=== PATIENT | male | born 1985 | race Caucasian/White ===

== ENCOUNTER 2020-07-20 12:26 | Emergency (ER) | payer OTHER, SELFPAY ==
--- NOTE | ~2020-07-20 | XR_ITS ---
EXAMINATION: LEFT WRIST X-RAY CLINICAL INFORMATION: Pain COMPARISON: None TECHNIQUE: 4 views of the left wrist FINDINGS: There is a fracture of the mid scaphoid bone. This has sclerotic margins and may not be acute. There is a well-corticated soft tissue ossification seen on the lateral view suggestive of old dorsal wrist fracture as well. There are degenerative changes at the radiocarpal joint. There may be dorsal tilt of the lunate. There is diffuse soft tissue swelling of the wrist. XR/XR wrist LT w scaphoid IMPRESSION: Fracture of the scaphoid bone that is probably not acute. Evidence of old trauma to the dorsal wrist. Degenerative changes at the radiocarpal joint and question slight dorsal tilt of the lunate.
[2020-07-20 12:40] VITALS: BP 108/59; PULSE 56; RESP 16; TEMP 36.6; O2SAT 98; BMI 25.0
--- NOTE | 2020-07-20 14:35 | ED_ITS ---
HPI - General Adult General Chief complaint: General Medical Stated complaint: L WRIST INJ WORK RELATED Time Seen by Provider: 07/20/20 13:05 Source: patient Mode of arrival: ambulatory Limitations: no limitations History of Present Illness HPI narrative: Kyle ochoa dom - here with known L wrist injury from several years ago that he did not receive full care for had L wrist fracture but did not follow up with orthopedics just used ED splint - he notes a box of korean fries fell on his L forearm not wrist last week and needs a note to return to work MD complaint: left wrist injury Onset (ago): week(s) (1) Location: left and upper extremity Radiation: non-radiation Severity: mild Quality: dull Pain Consistency: intermittent Relieving factors: none Exacerbating factors: none Associated symptoms: denies other symptoms Treatments prior to arrival: none Related Data Allergies Allergy/AdvReac Type Severity Reaction Status Date / Time No Known Allergies Allergy Unverified 02/20/20 15:27 Review of Systems Review of Systems: Constitutional : No Fever, No Chills ENT/Mouth : No Ear Pain, No Hoarseness Eyes: No Eye Pain, No Swelling, No Redness Cardiovascular : No Chest Pain, No SOB Respiratory : No Cough, No Dyspnea Gastrointestinal : No Nausea, No Vomiting Genitourinary : No Dysuria, No Hematuria Musculoskeletal : positive joint pain, No Myalgias Skin : No Skin lacerations, No rash Neuro : No Weakness, No Numbness PMFSH Past Medical History Attestation statement: The following information was validated with the patient. Medical History No known health problems Social History Social History (Updated 07/20/20 @ 14:40 by Henna Almonte DO) Smoking Status: Current every day smoker Use of substances other than those prescribed or required for medical reasons: No Advance Directives: No Advance Directives Information Provided: No Physical Exam Vital Signs: Vital Signs: Last Vital Signs Temp 97.9 F 07/20/20 12:40 Pulse 56 07/20/20 12:40 Resp 16 07/20/20 12:40 BP 108/59 L 07/20/20 12:40 Pulse Ox 98 07/20/20 12:40 Body Mass Index 25.0 Appearance: Alert. Oriented X3. No acute distress. Eyes: Pupils equal, round and reactive to light. ENT: Pharynx normal. Neck: Normal inspection. Neck supple. CVS: Normal heart rate and rhythm. Pulses normal. Respiratory: No respiratory distress. Breath sounds normal. Abdomen: Soft and nontender. Skin: Skin warm and dry. Normal skin color. Normal skin turgor. Extremities: L wrist chronic deformity and limited range of motion, NV intact, no signs of infection, no ttp over anatomical snuff box Neuro: Oriented X 3. No motor deficit. No sensory deficit. Medical Decision Making MDM Narrative Medical decision making narrative: 34 yo male with remote L wrist injury that he never received full care for other than splint in the ED - has likely old scaphoid fracture given his history has no ttp over scaphoid bone and his recent injury where a box of fries fell on him was at this forearm Discharge Plan Discharge Clinical Impression: Contusion of left wrist Qualifiers: Encounter type: initial encounter Qualified Code(s): S60.212A - Contusion of left wrist, initial encounter Patient Disposition: Home, Self-Care Instructions: Scaphoid Fracture (ED), Wrist Sprain (ED) Additional Instructions: you have evidence of an old wrist fracture that did not heal, in the future you should follow up with a hand surgeon, YOU ARE CLEARED FOR WORK AT THIS TIME. Referrals: Melba Hadley MD [Physician] - 1 week Stand Alone Forms: Work/School Release
== END 2020-07-20 14:45 | disposition home or self-care (01) ==
PROVIDERS: Emergency Provider Emergency Medicine
DX: S60.212A Contusion of left wrist, initial encounter (principal); W20.8XXA Other cause of strike by thrown, projected or falling object, initial encounter; Y93.89 Activity, other specified; Y92.511 Restaurant or cafe as the place of occurrence of the external cause; Y99.0 Civilian activity done for income or pay
CPT/HCPCS: 73110; 99283

== ENCOUNTER → 2020-08-05 13:32 | Outpatient (BNVA) | payer OTHER, SELFPAY | PROVIDERS: Visit Provider Orthopaedic Surgery ==

== ENCOUNTER 2024-12-22 12:27 | Emergency (ER) | payer MEDICAID, SELFPAY ==
--- NOTE | ~2024-12-22 | CT_ITS ---
CLINICAL HISTORY: LLQ tenderness CT ABDOMEN AND PELVIS WITH CONTRAST Comparison: None provided Findings: Bilateral lower lobe atelectasis and/or infiltrates, left greater than right. No pleural effusion. There are no acute abnormalities in the solid organs. There is diffuse fatty infiltration of the liver. No urolithiasis. Small left renal cyst. No large calcified gallstone. No AAA. No bowel obstruction, pneumoperitoneum, or pneumatosis. There is mucosal and paracolic edema in the distal descending colon associated with regional diverticula. There is fluid distention of the upstream colon. There is mild fluid distention of multiple small bowel loops with no abrupt transition point or significant mesenteric edema. Small amount of free fluid in the pelvis. No organized fluid collection. The appendix is identified. No acute appendicitis. Urinary bladder wall thickening is most likely due to underdistention. There is no significant perivesical edema. Prostate unremarkable. Small fat containing bilateral inguinal hernias. No acute fracture. IMPRESSION: 1. Acute diverticulitis in the distal descending colon with no perforation or peridiverticular abscess. 2. Fluid distention of the upstream colon can be associated with diarrheal symptoms. 3. Mild reactive small bowel ileus. No obstruction. 4. Mild pelvic ascites. 5. Additional findings as above. This document has been electronically signed by: Elke Myers DO on 12/22/2024 16:06:26
[2024-12-22 13:10] VITALS: BP 98/57; PULSE 79; RESP 16; TEMP 36.7; O2SAT 97; BMI 35.7
--- NOTE | 2024-12-22 13:10 | ED.ABDPAIN ---
HPI - Abdominal Pain General Chief Complaint: Abdominal Pain Stated Complaint: abd pain started on left side now on right/ V/N Time Seen by Provider: 12/22/24 14:50 Source: patient, family (mother), RN notes reviewed and old records reviewed Mode of arrival: ambulatory Limitations: no limitations History of Present Illness ED Provider: Ganesh HPI narrative: Patient is a 39-year-old male presenting to the emergency department with complaint of left lower quadrant abdominal pain which began last night. States that his last bowel movement was yesterday morning, and it was normal but that he typically has 3-4 bowel movements per day. This morning had nausea and vomiting. Pain was severe at onset and caused him to double over. Since has subsided some, rates current pain at 5/10. Denies fever. At times pain has radiated to left groin and left flank. Denies difficulty urinating, dysuria, hematuria. No past history of kidney stones for patient or mother. Denies prior abdominal surgeries. MD elicited complaint: abdominal pain Related Data Previous Rx's ?Medication ?Instructions ?Recorded amoxicillin 875 mg-potassium 1 tab PO BID #14 tabs 12/22/24 clavulanate 125 mg tablet ondansetron 4 mg disintegrating 4 mg PO Q8H PRN nausea and 12/22/24 tablet vomiting #10 tabs Allergies Allergy/AdvReac Type Severity Reaction Status Date / Time No Known Allergies Allergy Verified 12/22/24 13:12 Review of Systems Review of Systems As per HPI Yes all other systems are reviewed and are negative Constitutional: Reports as per HPI [facility] Past Medical History Medical History No known health problems Social History Social History (Updated 08/05/20 @ 13:46 by Althea Razo CMA) Advance Directives: No Advance Directives Information Provided: No Current occupational status: employed Current occupation: Food Distribution selector Physical Exam ED Vital Signs: Vital Signs - 24 hr 12/22/24 13:10 12/22/24 15:11 Temperature 98.0 F 99.3 F Pulse Rate 79 74 Respiratory Rate 16 16 Blood Pressure 98/57 L 129/69 Pulse Oximetry 97 96 Oxygen Delivery Method Room Air Room Air BMI result Body Mass Index 35.7 Vital signs have been reviewed and appear to be correct. Blood pressure low. Heart rate normal. Respiratory rate normal. Temperature normal. Oxygen saturation normal. Const General: cooperative, healthy appearing and no acute distress Orientation/consciousness: oriented to person, oriented to place, oriented to time and patient oriented x3 Limitations: no limitations HENMT Head: Yes normocephalic and Yes atraumatic Ears: external ears normal General nose exam: Normal external nose present Face and sinus: Yes face symmetric Mouth: oropharynx normal and moist mucous membranes Throat: Yes uvula midline Eyes Pupils: Equal, round and reactive pupils present Neck Neck: Yes normal visual inspection and Yes supple Resp Effort & Inspection: normal respiratory effort and able to speak in complete sentences Auscultation: clear to auscultation bilaterally Cardio Rate: regular rate Rhythm: regular rhythm Heart sounds: S1 normal heart sound present and S2 normal heart sound present GI Palpation (GI): Soft to palpation, Tenderness to palpation present (GI) in the LLQ, no guarding, no hernias and No Rebound tenderness present Auscultation: normoactive bowel sounds General: Yes no CVA tenderness Back/Spine/Pelvis Back: no CVA tenderness Skin General skin exam: elasticity normal and turgor normal Neuro General: oriented to person, oriented to place, oriented to time, patient oriented x3, moves all extremities, no focal motor deficits and CN's II-XI intact bilaterally Cranial nerves: Yes Equal, round and reactive pupils present Cognition (Neuro): normal cognition Extrem General: Yes full ROM, Yes no pedal edema and Yes no calf tenderness Psych Mental Status: mental status grossly normal Affect: normal affect Thought process: Normal thought process present Course Course Course Narrative: Brigette Bajwa ELECTRONIC WARFARE OPERATOR 12/22 1311 This is a rapid medical exam. Deferred additional HPI, ROS, PE to primary provider. 39 yo male with no PMH/no abdominal surgical history here with complaints of left sided abdominal pain, constipation, nausea/vomiting. Last BM yesterday but small per patient. Took dulcolax/MOM 2 hrs prior. Will obtain labs, UA. VSS Medical Decision Making Medical Decision Making MDM Narrative: Patient is a 39-year-old male presenting to the emergency department with complaint of left lower quadrant abdominal pain which began last night. On exam patient is awake, A+Ox3, VS WNL, afebrile, normal neurological exam without focal deficits, physical exam findings as above. Given reported symptoms and physical exam findings, initial differential includes but is not limited to UTI, pyelonephritis, obstructing calculi, hydronephrosis, diverticulitis, obstruction. Labs notable for no leukocytosis, no significant electrolyte abnormalities. CT notable for acute diverticulitis without perforation or abscess. My interpretation is in agreement with the radiologist's interpretation. Will discharge patient home on augmentin with zofran for nausea. Return precautions discussed at bedside. Patient provided with referrals to primary care as he states he does not currently have a PCP. Patient verbalized understanding of and agreement with plan. Differential Diagnosis Differential Diagnoses: The differential diagnosis associated with the presentation includes as per [facility] Admission/Observation Consideration of admission/observation: Escalation of care including admission/observation considered Patient would have been admitted to the hospital had their clinical presentation warranted hospital admission. Lab Data [facility] Lab Attestation statement: I reviewed the patient's lab results. as per [facility] 12/22/24 13:23 12/22/24 13:23 Labs: Lab Results 12/22/24 Range/Units 13:23 WBC 10.4 (4.8-10.8) X10*3/uL RBC 5.01 (4.60-5.80) X10*6/uL Hgb 15.1 (14.0-18.0) g/dl Hct 43.8 (42.0-52.0) % MCV 87.4 (80.0-98.0) fL MCH 30.1 (27.0-33.0) pg MCHC 34.5 (31.0-36.0) g/dl RDW 12.6 (11.0-16.0) % Plt Count 232 (160-400) X10*3/uL MPV 10.0 (9.4-12.4) fL Immature Gran % (Auto) 0.3 (0.0-0.4) % Neut % (Auto) 85.1 H (45-73) % Lymph % (Auto) 8.3 L (20-40) % [place] % (Auto) 5.1 (2-11) % Eos % (Auto) 1.1 (0-4) % Baso % (Auto) 0.1 (0-2) % Lymph # (Auto) 0.9 L (1.2-4.9) X10*3/uL [place] # (Auto) 0.5 (0.1-1.2) X10*3/uL Eos # (Auto) 0.1 (0.0-0.4) X10*3/uL Baso # (Auto) 0.0 (0.0-0.2) X10*3/uL Abs Immat Gran (auto) 0.03 (0.00-0.03) X10*3/uL Absolute Neuts (auto) 8.9 H (2.0-8.3) x10*3/uL Absolute Nucleated RBC 0.000 (0.0-0.012) X10*3/uL Nucleated RBC % (auto) 0.0 (0.0-0.2) /100WBC Sodium 143 (135-145) mmol/L Potassium 4.1 (3.3-5.1) mmol/L Chloride 107 (96-108) mmol/L Carbon Dioxide 24 (22-29) mmol/L Anion Gap 16 (12-20) BUN 18 H (9-16) mg/dL Creatinine 1.08 (0.5-1.4) mg/dL Estim Creat Clear Calc 106.5 Estimated GFR > 60 Random Glucose 108 (60-115) mg/dL Calcium 9.5 (8.4-10.2) mg/dL Total Bilirubin 0.3 (0.0-1.0) mg/dL Direct Bilirubin 0.2 (0.0-0.5) mg/dL AST 29 (5-37) U/L ALT 49 H (0-40) U/L Alkaline Phosphatase 86 (39-117) U/L Total Protein 7.8 (6.5-8.0) g/dL Albumin 4.8 (3.5-5.0) g/dL Lipase 13 (8-78) U/L Independent Interpretation I performed an independent interpretation of an: CT Scan Interpretation: [facility] UTI abdomen pelvis notable for acute diverticulitis without evidence of perforation or abscess Radiology Impression Discussion of test interpretation with radiology: I have reviewed the radiologist's reading. Radiologist Impression: IMPRESSION: 1. Acute diverticulitis in the distal descending colon with no perforation or peridiverticular abscess. 2. Fluid distention of the upstream colon can be associated with diarrheal symptoms. 3. Mild reactive small bowel ileus. No obstruction. 4. Mild pelvic ascites. 5. Additional findings as above. External Record Review External record reviewed: Inpatient record, Office record and Outpatient record Prescription Management I considered prescription management with: Antibiotic and Other Medications Administered Discontinued Medications Generic Name Dose Route Start Last Admin Trade Name Freq PRN Reason Stop Dose Admin Sodium Chloride 1,000 mls @ 999 mls/hr 12/22/24 15:00 12/22/24 16:33 Ns IV 12/22/24 16:00 Infused .Q1H1M FELIPE Infusion Iohexol 100 ml 12/22/24 15:22 12/22/24 15:22 Iohexol 350 Mg/Ml 100 Ml Infus..Btl IV 12/22/24 15:23 85 ml ONCE ONE Administration Morphine Sulfate 4 mg 12/22/24 14:56 12/22/24 15:12 Morphine Sulfate 4 Mg/Ml Cartridge IVPUSH 12/22/24 14:57 4 mg ONCE ONE Administration Protocol Ondansetron HCl 4 mg 12/22/24 14:56 12/22/24 15:12 Ondansetron Hcl 4 Mg/2 Ml Vial IVPUSH 12/22/24 14:57 4 mg ONCE ONE Administration Discharge Plan Discharge Clinical Impression: Diverticulitis Patient Disposition: Home, Self-Care Instructions: Amoxicillin/Clavulanate Potassium (By mouth), Diverticulitis (DC), Diverticulitis Diet (ED) Additional Instructions: You were evaluated in the emergency department today for abdominal pain. Your CT scan showed evidence of diverticulitis which is an infection of your colon. You are being prescribed antibiotics, please complete the full course as prescribed even if your symptoms improve. You can use ibuprofen or naproxen as needed for discomfort, do not take these medications in combination. You are being prescribed ondansetron for nausea which you can take every 8 hours as needed. Return to the emergency department if you develop worsening pain, fever 100.4? F or greater, persistent vomiting or any other new or concerning symptoms. Prescriptions: New amoxicillin-pot clavulanate 875-125 mg tablet 1 tab PO BID Qty: 14 0RF ondansetron 4 mg tablet,disintegrating 4 mg PO Q8H PRN (Reason: nausea and vomiting) Qty: 10 0RF Referrals: [facility] [place] [facility] [Provider Group, Internal Medicine] [facility] [Provider Group, Internal Medicine] Print Language: Guatemalan
[2024-12-22 13:32] LABS: MANUAL DIFF FLAG NO
[2024-12-22 13:33] LABS: Hematocrit 43.8 % (42.0-52.0); Hemoglobin 15.1 g/dl (14.0-18.0); Imm Gran Abs Auto 0.03 X10*3/uL (0.00-0.03); Imm Gran Pct Auto 0.3 % (0.0-0.4); Lymphocytes Absolute Auto 0.9 X10*3/uL (1.2-4.9); Mean Corpuscular HGB Conc 34.5 g/dl (31.0-36.0); Mean Corpuscular Hemoglobin 30.1 pg (27.0-33.0); Mean Corpuscular Volume 87.4 fL (80.0-98.0); NRBC Abs Auto 0.000 X10*3/uL (0.0-0.012); NRBC Pct Auto 0.0 /100WBC (0.0-0.2); Platelet Count 232 X10*3/uL (160-400); Red Blood Count 5.01 X10*6/uL (4.60-5.80); White Blood Count 10.4 X10*3/uL (4.8-10.8)
[2024-12-22 13:53] LABS: Alanine Aminotransferase 49 U/L (0-40); Albumin Level 4.8 g/dL (3.5-5.0); Alkaline Phosphatase 86 U/L (39-117); Anion Gap 16 (12-20); Aspartate Amino Transferase 29 U/L (5-37); Blood Urea Nitrogen 18 mg/dL (9-16); Calcium 9.5 mg/dL (8.4-10.2); Carbon Dioxide 24 mmol/L (22-29); Chloride 107 mmol/L (96-108); Creatinine Clr Calc Pharmacy 106.5; Estimated Glomerular Filt Rate > 60; Lipase 13 U/L (8-78); Potassium 4.1 mmol/L (3.3-5.1); Sodium 143 mmol/L (135-145); Total Protein 7.8 g/dL (6.5-8.0)
[2024-12-22 15:11] VITALS: BP 129/69; PULSE 74; RESP 16; TEMP 37.4; O2SAT 96
[2024-12-22] MEDS: iohexoL 350 MG/ML 100 ML INFUS..BTL IV (15:22)
--- OUTSIDE RECORDS SUMMARY | 2024-12-22 15:50 | XMS_ITS | Clinical Summary ---
Author Organization [facility] Address [address] [place] [id number] Care Team Providers Care Senior Risk Analyst Name Role Phone Pcp, No Primary Care Provider Unavailabl e Allergies No known active allergies Medications No known medications Active Problems No known active problems Social History Tobacco Use Types Packs/Day Years Used Date Smoking Tobacco: Every Day Cigarettes Smokeless Tobacco: Never Tobacco Cessation:Ready to Q uit: Not Asked; Counseling Given: Not Answered Alcohol Use Standard Drinks/Week Comments Yes 0 (1 standard drink = 0.6 oz pur e alcohol) Sex and Gender Information Value Date Recorded Sex Assigned at Not on file Legal Sex Male 10:37 AM EDT Gender Identity Not on file Sexual Orientation Not on file Last Filed Vital Signs Vital Sign Reading Time Taken Comments Blood Pressure 120/81 09/08/2022 1:54 PM EDT Pulse 71 09/08/2022 1:54 PM EDT Temperature 36.2 C (97.2 F) 09/08/2022 1:54 PM EDT Respiratory Rate - - Oxygen Saturation 100% 09/08/2022 1:54 PM EDT Inhaled Oxygen Concentration - - Weight 99.8 kg (220 lb) 09/08/2022 1:54 PM EDT Height 188 cm (6' 2 ) 08/26/2022 10:52 AM EDT Body Mass Index 28.25 08/26/2022 10:52 AM EDT Plan of Treatment Health Maintenance Due Date Last Done Comments Hepatitis C Virus Screening 1983 HIV Screening 08/18/1996 DTaP/Tdap/Td Vaccines (1 - Tdap) 08/18/2002 Hepatitis B Vaccines (1 of 3 - 19+ 3-dose series) 08/18/2002 Pneumococcal Vaccine: Pediat neftali (0-5 Years) and At-Risk Patients (6 to 49 Years) (1 of 2 - PCV) 08/18/2002 COVID-19 Vaccine (2023-2 5 season) 2024 Influenza Vaccine 01/03/2025 HPV Vaccines Aged Out No longer eligi ble based on patient's age to complete this topic Insurance [employer] - PPO Care Teams Senior Risk Analyst Relationship Specialty Start Date End Date Pcp, No PCP - General General Medicine 08/16/22
[2024-12-22 18:03] VITALS: BP 132/69; PULSE 70; RESP 16; TEMP 37.3; O2SAT 93
[2024-12-22 18:15] VITALS: BP 132/69; PULSE 70; RESP 16; TEMP 37.3; O2SAT 93
== END 2024-12-22 18:16 | disposition home or self-care (01) ==
PROVIDERS: Nurse Practitioner Family; Emergency Provider Emergency Medicine
DX: K57.32 Diverticulitis of large intestine without perforation or abscess without bleeding (principal); R10.2 Pelvic and perineal pain; R11.2 Nausea with vomiting, unspecified; R10.32 Left lower quadrant pain; Z79.899 Other long term (current) drug therapy
CPT/HCPCS: 36415; 74177; 80048; 80076; 83690; 85025; 96361; 96374; 96375; 99284; J2270; J2405; Q9967

== ENCOUNTER → 2024-12-22 15:07 | Outpatient (BNV) | payer MEDICAID, SELFPAY | PROVIDERS: Emergency Provider Emergency Medicine; Visit Provider Radiology Diagnostic Radiology | DX: K57.32 Diverticulitis of large intestine without perforation or abscess without bleeding (principal) | CPT/HCPCS: 74177 ==

== ENCOUNTER 2025-03-17 11:53 | Outpatient (REF) | payer MEDICAID, SELFPAY ==
--- NOTE | ~2025-03-17 | XR_ITS ---
EXAMINATION: XR FOOT, RIGHT CLINICAL INFORMATION: swelling COMPARISON: Right foot 11/12/2017 TECHNIQUE: AP, lateral, and oblique views of the right foot. FINDINGS: There is no acute fracture, dislocation or subluxation. There is normal alignment of joints. There is mild dorsal intertarsal spurring. Also visualizes small calcaneal heel and retrocalcaneal enthesophytes. The ankle mortise and subtalar joints have decreased in size since 2018 exam. XR/XR foot RT min 3V IMPRESSION: No acute fracture or dislocation seen. 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 Electronically signed by: Kamaljit Desai MD 03/18/2025 07:15 AM EDT
--- OUTSIDE RECORDS SUMMARY | 2025-03-17 11:20 | XMS_ITS | Encounter Summary ---
Author Organization [facility] Address [address] [facility] [address] [place] [address] Care Team Providers Care Electrical Design Technologist Name Role Phone Eduinemily Yas RYAN Primary Care Provider [phone] Reason for Visit * Reason Comments Gout Encounter Details Date Type Department Care Team (Late st Contact Info) Description 03/17/2025 11:20 AM EDT Office Visit [facility] [address] [place] [address] [phone] Pain and swelling of toe of right foot (Primary Dx) Social History Tobacco Use Types Packs/Day Years Used Date Smoking Tobacco: Never Passive Smoke Exposure: Never Smokeless Tobacco: Never Tobacco Cessation:Counseling Given: Not Answered Sex and Gender Information Value Date Recorded Sex Assigned at Male 03/17/2025 11:00 AM EDT Legal Sex Male 2:32 AM EDT Gender Identity Male 03/17/2025 11:00 AM EDT Sexual Orientation Straight 03/17/2025 11 :00 AM EDT documented as of this encounter Last Filed Vital Signs Vital Sign Reading Time Taken Comments Blood Pressure 127/73 03/17/2025 11:23 AM EDT Pulse 60 03/17/2025 11:23 AM EDT Temperature 36.6 C (97.8 F) 03/17/2025 11:23 AM EDT Respiratory Rate 16 03/17/2025 11:23 AM EDT Oxygen Saturation - - Inhaled Oxygen Concentration - - Weight 104 kg (228 lb 3.2 oz) 03/17/2025 11:23 A M EDT Height 185.4 cm (6' 1 ) 03/17/2025 11:23 AM EDT Body Mass Index 30.11 03/17/2025 11:23 AM EDT documented in this encounter Plan of Treatment Upcoming Encounters Date Type Department Care Team (Late st Contact Info) Description 05/16/2025 10:30 AM EST Office Visit [facility] [address] [place] [address] [phone] Yas Palencia NP [address] [place] [address] Scheduled Orders Name Type Priority Associated Diagnoses Orde r Schedule XR Foot 3+ Views Right Imaging Routine Pain and swelling of toe of right foot Expected: 03/17/2025, Expires: 03/17/2026 Basic Metabolic Panel Lab Routine Pain and swelling of toe of right foot Expected: 03/17/2025 (Approximate), Expires: 03/17/2026 Uric acid Lab Routine Pain and swelling of toe of right foot Expected: 03/17/2025 (Approximate), Expires: 03/17/2026 documented as of this encounter Visit Diagnoses Diagnosis Pain and swelling of toe of right foot- Primary documented in this encounter Care Teams Electrical Design Technologist Relationship Specialty Start Date End Date Yas Palencia NP [address] [place] [address] PCP - General Family Medicine 03/17/25 documented as of this encounter
--- OUTSIDE RECORDS SUMMARY | 2025-03-17 11:56 | XMS_ITS | Clinical Summary ---
Author Organization [facility] Address [address] [facility] [address] [place] [address] Care Team Providers Care Metal Fabricating Inspector Name Role Phone Slime Yas DAVIS Primary Care Provider [phone] Allergies No known active allergies Medications ibuprofen 600 MG tabletIndication s:Pain and swelling of toe of right foot Take 1 tablet (600 mg) by mouth every 6 (six) hours if needed for mild pain for up to 14 days. 56 tablet 03/17/2025 Active Encounters Date Type Department Care Team Description 03/17/2025 11:20 AM EDT Office Visit [facility] [address] [place] [address] Pain and swelling of toe of right foot (Primary Dx) 03/17/2025 Travel 03/07/2025 Population Health Risk Score [facility] ([facility]) Department [address] [phone] Provider, Population Health Generic from Last 3 Months Social History Tobacco Use Types Packs/Day Years Used Date Smoking Tobacco: Never Passive Smoke Exposure: Never Smokeless Tobacco: Never Tobacco Cessation:Counseling Given: Not Answered Sex and Gender Information Value Date Recorded Sex Assigned at Male 03/17/2025 11:00 AM EDT Legal Sex Male 2:32 AM EDT Gender Identity Male 03/17/2025 11:00 AM EDT Sexual Orientation Straight 03/17/2025 11 :00 AM EDT Last Filed Vital Signs Vital Sign Reading [...] Mass Index 30.11 03/17/2025 11:23 AM EDT Plan of Treatment Upcoming Encounters Date Type Department Care Team ([facility] st Contact Info) Description 05/16/2025 10:30 AM EST Office Visit [facility] [address] [place], [place] [phone] Yas Palencia NP [address] [place] [address] Health Maintenance Due Date Last Done Comments Depression Screening 1983 HIV Screening 1983 Lipid Panel 1983 SDOH Screening 1983 Disability Screening 1983 Alcohol/Substance Use Screening 1995 Tobacco Screening 1995 Family Planning (PISQ) 08/18/1998 HPV Vaccines (1 - Male 3-dos e series) 08/18/1998 Hepatitis C Screening 08/18/2001 Hepatitis B Vaccines (1 of 3 - 19+ 3-dose series) 08/18/2002 DTaP/Tdap/Td Vaccines (2 - T d or Tdap) 03/05/2023 03/05/2013 COVID-19 Vaccine (1 - 2023-2 5 season) 2025 Influenza Vaccine (#1) 2025 Zoster Vaccines (1 of 2) 08/18/2033 RSV Patients and Pa tients Aged 60 years or older (1 - 1-dose 75+ series) 08/18/2058 HIB Vaccines Aged Out No longer eligi ble based on patient's age to complete this topic Hepatitis A Vaccines Aged Out No long er eligible based on patient's age to complete this topic IPV Vaccines Aged Out No longer eligi ble based on patient's age to complete this topic Meningococcal B Vaccine Aged Out No l onger eligible based on patient's age to complete this topic Meningococcal Vaccine Aged Out No jennifer petra eligible based on patient's age to complete this topic Pneumococcal Vaccine: Pediat rics (0 to 5 Years) and At-Risk Patients (6 to 49) Years Aged Out No longer eligi ble based on patient's age to complete this topic RSV under 20 months Aged Out No longe r eligible based on patient's age to complete this topic Rotavirus Vaccines Aged Out No longer eligible based on patient's age to complete this topic Insurance [facility] C3 Care Teams Metal Fabricating Inspector Relationship Specialty Start Date End Date Yas Palencia NP [address] [place] [address] PCP - General Family Medicine 03/17/25
--- OUTSIDE RECORDS SUMMARY | 2025-03-17 11:56 | XMS_ITS | Encounter Summary ---
Author Organization [employer] Address [address] [facility] [address] [place] [address] Care Team Providers Care Vp Training Name Role Phone Yas Palencia NP Primary Care Provider [phone] Encounter Details Date Type Department Care Team (Latest Contact Info) Description 03/17/2025 Travel Social History Tobacco Use Types Packs/Day Years Used Date Smoking Tobacco: Never Passive Smoke Exposure: Never Smokeless Tobacco: Never Sex and Gender Information Value Date Recorded Sex Assigned at Male 03/17/2025 11:00 AM EDT Legal Sex Male 2:32 AM EDT Gender Identity Male 03/17/2025 11:00 AM EDT Sexual Orientation Straight 03/17/2025 11 :00 AM EDT documented as of this encounter Plan of Treatment Upcoming Encounters Date Type Department Care Team (Late st Contact Info) Description 05/16/2025 10:30 AM EST Office Visit [facility] [address] [place] [address] Yas Palencia NP [address] [place] [address] documented as of this encounter Visit Diagnoses Not on filedocumented in this encounter Care Teams Vp Training Relationship Specialty Start Date End Date Yas Palencia NP [address] [place] [address] PCP - General Family Medicine 03/17/25 documented as of this encounter
--- OUTSIDE RECORDS SUMMARY | 2025-03-17 11:56 | XMS_ITS | Clinical Summary ---
Author Organization [facility] Address [address] [place] [id number] Care Team Providers Care [employer] Name Role Phone Pcp, No Primary Care [...] (1 of 3 - 19+ 3-dose series) 08/03 Pneumococcal Vaccine: Pediat neftali (0-5 Years) and At-Risk Patients (6 to 49 Years) (1 of 2 - PCV) 08/18/2002 Influenza Vaccine 01/03/2025 COVID-19 Vaccine (2023- season) 2025 HPV Vaccines (No Doses Required) Completed Insurance Care Teams [employer] Relationship Specialty Start Date End Date Pcp, No PCP - General General Medicine 08/16/22
[2025-03-17 13:56] LABS: Anion Gap 10 (12-20); Blood Urea Nitrogen 12 mg/dL (9-16); Calcium 8.7 mg/dL (8.4-10.2); Carbon Dioxide 27 mmol/L (22-29); Chloride 111 mmol/L (96-108); Estimated Glomerular Filt Rate > 60; Potassium 4.1 mmol/L (3.3-5.1); Sodium 144 mmol/L (135-145); Uric Acid 7.4 mg/dL (3.4-7.0)
== END 2025-03-17 11:54 | disposition home or self-care (01) ==
LOC: HO.HHCX 11:53
PROVIDERS: Visit Provider Nurse Practitioner
DX: M79.674 Pain in right toe(s) (principal); M79.89 Other specified soft tissue disorders
CPT/HCPCS: 36415; 73630; 80048; 84550

== ENCOUNTER → 2025-03-17 11:53 | Outpatient (BNV) | payer MEDICAID, SELFPAY | PROVIDERS: Visit Provider Radiology Diagnostic Radiology | DX: R22.41 Localized swelling, mass and lump, right lower limb (principal) | CPT/HCPCS: 73630 ==